=== PATIENT | male | born 1945 | race Caucasian/White ===

== ENCOUNTER → 2016-12-17 | Day surgery (SDC) | payer BC, MEDICARE ==
[~2016-12-17] VITALS: Ht 170.2 cm; Wt 122.0 kg
[~2016-12-17] MED LIST: BENADRYL25 MG PO; COLACE100 MG PO; CPAP INH; FLOMAX0.4 MG PO; MELATONIN5 M2 PO; NEURONTIN100 MG PO; ONE DAILY MULT1 EAC1 PO; OSTEO BI-FLEX1 EAC1 PO; PRILOSEC20 MG PO; PRINIVIL (ZESTR20 MG PO; PROTONIX40 MG PO; TYLENOL EXTRA500 MG PO; TYLENOL325 MG PO; ULTRAM50 MG PO; VITAMIN B-12500 MCG PO; VITAMIN B-250 MG PO; XARELTO20 MG PO; ZINC50 M1 PO; ZYLOPRIM100 MG PO; ZYLOPRIM300 MG PO
--- NOTE | ~2016-12-17 | OR ---
PATIENT'S NAME: ROSALBA PAT [facility] AGE: 71 Y [address] ROOM: [place] [id number] LOCATION: [facility] [place] ADMIT DATE: 12/17/2016 OR/Procedure Report DISCHARGE DATE: FAMILY PHYSICIAN: SHAINA VALDEZ ATTENDING PHYSICIAN: Paulo Rose SURGEON: Paulo Rose MD SURVIVAL SPECIALIST: DATE OF PROCEDURE: 12/17/2016 PREOPERATIVE DIAGNOSES: Phimosis with balanoposthitis. POSTOPERATIVE DIAGNOSES: Phimosis with balanoposthitis. OPERATION PERFORMED: Circumcision. DESCRIPTION OF PROCEDURE: After adequate anesthesia, he was prepped and draped. The dorsal slit was done and then the prepuce was retracted over the glans and then re-prepped. A circumcision was then done using the parallel line technique. It was closed with interrupted 4-0 chromic sutures. Vaseline gauze dressing was applied. He returned to recovery area. PAULO ROSE MD EKL/modl /[id number] d: 12/17/16 0723 t: 12/18/16 0754, OPERATIVE SUMMARY
--- NOTE | ~2016-12-17 | HP ---
PATIENT'S NAME: ROSALBA PAT [facility] AGE: 71 Y [address] ROOM: [place] [id number] LOCATION: [facility] ADMIT DATE: 12/12/2016 History & Physical DISCHARGE DATE: FAMILY PHYSICIAN: PHYSICIAN, NO ATTENDING PHYSICIAN: Paulo Quinones DATE OF SERVICE: HISTORY: A 71-year-old male who for the past several months has had progressive problems with inflammation of the prepuce, which eventually has resulted in phimosis, is unable to retract the prepuce over the glans penis. He is seen now for circumcision. In 07/2016, he had back surgery for pseudarthrosis of L5-S1. At that time, they apparently had difficulty inserting a Verde catheter. Then once that was removed, he began having voiding symptoms with nocturia x2. During the daytime, he voids every 2 to 3 hours with some urgency and urge incontinence. He has a fairly good stream and no hesitation. He has had a past history of a low testosterone level and was on androgen gel for several years and he has been off that recently. He also has a history of having a deep vein thrombosis in 12/2005 and has been on Xarelto. PAST MEDICAL HISTORY: Illnesses: None. OPERATIONS: Tonsillectomy, appendectomy, total right shoulder, back surgery, total hips bilateral. ALLERGIES: NONE KNOWN. PHYSICAL EXAMINATION: GENERAL: A well-developed, well-nourished male. VITAL SIGNS: 142/80, 273 pounds. ABDOMEN: Soft and obese with no palpable masses. CHEST: Clear to auscultation. HEART: Normal sinus rhythm. : Uncircumcised penis with phimosis and chronic infection. Testicles are normal. Prostate is normal to palpation. PATIENT'S NAME: ROSALBA PAT [facility] AGE: 71 Y [address] ROOM: [place] [id number] LOCATION: [facility] ADMIT DATE: 12/12/2016 History & Physical DISCHARGE DATE: FAMILY PHYSICIAN: PHYSICIAN, NO ATTENDING PHYSICIAN: Paulo Quinones RECTAL: Negative. IMPRESSION: 1. Phimosis with balanoposthitis. 2. Benign prostatic hyperplasia. PLAN: Circumcision. PAULO K MD EDWARD QUINONES/omar /[id number] D: [id number] T: [id number] HISTORY & PHYSICAL
[2016-12-17 06:19] LABS: BASOPHIL # 0.1 K/uL (0.0-0.2); BASOPHIL % 0.7 %; EOSINOPHIL # 0.1 K/uL (0.0-0.5); EOSINOPHIL % 1.7 %; HEMATOCRIT 40.1 % (37.0-53.0); HEMOGLOBIN 12.4 g/dL (11.0-16.0); IMMATURE GRANULOCYTE % 0.5 %; LYMPHOCYTE # 1.5 K/uL (0.8-4.0); MCHC 30.9 gm/dL (32.0-36.5); MCV 93.9 fl (83.0-98.0); MONOCYTE # 0.8 K/uL (0.0-1.0); MONOCYTE % 9.7 %; MPV 10.1 fl (9.4-12.4); NEUTROPHIL # (ANC) 5.7 K/uL (1.4-9.0); NEUTROPHIL % 69.4 %; NRBC % 0 /100WBC (0-0.00); PLATELET COUNT 269 K/uL (150-450); RBC 4.27 M/uL (3.50-5.50); RDW-CV 14.7 % (11.9-14.6); WBC 8.2 K/uL (4.0-11.0)
== END | disposition disaster alternative care site (69) ==
LOC: GPOC 12-12 10:00 → GSDC 05:25
PROVIDERS: Urology
PROC: 0VTTXZZ Resection of Prepuce, External Approach (ICD-10-PCS; principal; 2016-12-17)
DX: N47.7 Other inflammatory diseases of prepuce (principal); N47.8 Other disorders of prepuce; I10 Essential (primary) hypertension; K21.9 Gastro-esophageal reflux disease without esophagitis; N40.1 Benign prostatic hyperplasia with lower urinary tract symptoms; N39.41 Urge incontinence; Z90.49 Acquired absence of other specified parts of digestive tract; Z98.890 Other specified postprocedural states
CPT/HCPCS: J2001; J3010; J7120

== ENCOUNTER → 2017-01-28 | Outpatient (CLI) | payer BC, MEDICARE | END | disposition disaster alternative care site (69) | LOC: LGSMG 16:43 | DX: M79.89 Other specified soft tissue disorders (principal) ==